=== PATIENT | female | born 1960 | race Caucasian/White ===

== ENCOUNTER 2016-11-05 07:15 | Day surgery (SDC) | payer OTHER ==
[~2016-11-05] VITALS: Ht 154.9 cm; Wt 68.0 kg
[~2016-11-05 07:15] MED LIST: 0.9% Sodium Chloride 1,000 ML IV SCH; IMI25 PO; Sodium Chloride LOK Flush 10 mL Syringe IV PRN; fentaNYL-PF 50 mCg/mL 2 mL Inj IVPUSH PRN
[2016-11-05 07:35] VITALS: BP 150/99; PULSE 81; RESP 16; O2SAT 97
[2016-11-05 08:25] VITALS: BP 121/78; PULSE 69; RESP 18; O2SAT 95
--- NOTE | 2016-11-05 08:32 | PCM.ENDCOL ---
Colonoscopy Date of Service: November 05, 2016 Physician Dominguez Naranjo MD Pre Procedure Diagnosis: Screening Post Procedure Dx & Findings: Polyp hemorrhoids Procedure Colonoscopy PROCEDURE IN DETAIL: Prep adequate Withdrawal time 9 minutes After unremarkable rectal examination the Olympus video colonoscope was inserted patient's anal canal and was advanced to cecum. Landmarks were identified including the ileocecal valve and appendiceal orifice. Scope was withdrawn systematically. Visualized colonic mucosa showed healthy shiny mucosa with normal healthy-appearing vasculature. In the ascending colon, there was a 4 mm polyp which was removed completely using cold snare. In the rectum retroflexion was done which showed hemorrhoids. Anal canal was inspected carefully on the way out and hemorrhoids noted. Impression Polyp 1 status post complete removal Hemorrhoids Recommendation Repeat colonoscopy 5 year Presedation Assessment Risks and Benefits Informed consent was obtained from the patient after all risks and benefits including but not limited to drug reaction, infection, pain, bleeding, perforation, as well as alternatives were discussed. Patient monitoring Continuous pulse oximetry, cardiac monitoring, blood pressure monitoring, IV access, and oxygen at 2L per nasal cannula. Periprocedural Fentanyl: Fentanyl 125mcg Incrementally Midazolam: Midazolam 5mg Incrementally Complications There were no periprocedural complications identified. Post Procedure Plan Post Procedure Recommendations 1. Restrict activities today. 2. Resume normal activities in the morning. 3. Resume medications. 4. Patient informed of normal post procedure side effects as bloating, drowsiness, blood streaking in the stool. 5. average risk CRCS. If colon polyps come back as: -Hyperplastic- can repeat colonoscopy in 10 years -Tubular adenoma- repeat colonoscopy in 5 years -Tubulovillous/villous adenoma- repeat colonoscopy in 3 years -If any dysplasia- return to clinic as soon as possible 6. Please don't hesitate to call me with any questions. Dominguez Naranjo MD November 05, 2016 08:32
[2016-11-05 08:35] VITALS: BP 124/75; PULSE 65; RESP 16; O2SAT 96
[2016-11-05 08:45] VITALS: BP 119/79; PULSE 77; RESP 16; O2SAT 96
[2016-11-05 08:55] VITALS: BP 120/80; PULSE 65; RESP 16; O2SAT 98
--- NOTE | 2016-11-06 10:13 | PATH ---
SURGICAL PATHOLOGY Attending Physician:Dominguez Naranjo M.D. CASE STATUS: Signed Out PATIENT NAME: FREDDIE FRAZIER PID: [id number] : 1960 DATE COLLECTED:11/05/2016 17:16 SPECIMEN: Colon, Biopsy CLINICAL HISTORY: 1). ASCENDING POLYP FINAL DIAGNOSIS: 1.ASCENDING COLON POLYP: TUBULAR ADENOMA INVOLVING BOTH BIOPSY FRAGMENTS. ICD10 CODE D12.2 GROSS DESCRIPTION: The specimen is received in one formalin filled container labeled with the patient's name, sublabeled "ascending polyp" and consists of 2 portions of tissue which aggregate to 0.4 x 0.4 x 0.3 CM. The specimen is entirely submitted in one cassette 11/05/2016 DAC MICRO DESCRIPTION: See diagnosis. ICD-9 CODES: CPT CODES: 1: 22581 Electronically Signed Out Michoacano Jones MD [facility] Pathology [facility] [address], [place] [address] Technical component performed at [facility], [facility] [address], [place], [address]
== END 2016-11-05 23:59 | disposition home or self-care (01) ==
LOC: END 07:15
PROVIDERS: ATTEND Internal Medicine
DX: Z12.11 Encounter for screening for malignant neoplasm of colon (principal); D12.2 Benign neoplasm of ascending colon; K64.9 Unspecified hemorrhoids
CPT/HCPCS: 45385; G0500; J7030